=== PATIENT | female | born 1985 | race Caucasian/White ===

== ENCOUNTER 2019-11-22 01:50 | Emergency (ER) | payer MEDICAID ==
[~2019-11-22] VITALS: Ht 170.2 cm; Wt 108.9 kg
[2019-11-22 02:24] VITALS: BP_SYST 131
--- NOTE | 2019-11-22 03:00 | NUR ---
call pt name in the wr.no answer.
--- NOTE | 2019-11-22 03:05 | NUR ---
call pt name in the wr.no answer.
--- NOTE | 2019-11-22 03:10 | NUR ---
call pt name in the wr.no answer.
== END 2019-11-22 03:10 | disposition left against medical advice (07) ==
LOC: SED 01:50
DX: R06.00 Dyspnea, unspecified (principal); Z53.21 Procedure and treatment not carried out due to patient leaving prior to being seen by health care provider